=== PATIENT | male | born 1955 | race African-American/Black ===

== ENCOUNTER → 2017-12-03 | Outpatient (CLI) | payer BC ==
--- NOTE | 2017-12-04 12:13 | RADIOLOGY REPORT (SQ) ---
EXAM DESCRIPTION: CT CHEST WITHOUT COMPLETED DATE/TIME: 12/04/2017 11:21 am LUNGRADS: Not applicable REASON FOR STUDY: LUNG CANCER SCREENING,Chronic obstructive pulmonary disease, unspecified J44.9 CH RONIC OBSTRUCTIVE PULMONARY DISEASE, UNSPECIFIED COPD, shortness of breath COMPARISON: None. TECHNIQUE: CT scan performed of the chest without intravenous contrast. Images reviewed with lung, soft tissue and bone windows. Reconstructed coronal and sagittal MPR images reviewed. All images st ored on PACS. All CT scanners at this facility use dose modulation, iterative reconstruction, and/or weight based d osing when appropriate to reduce radiation dose to as low as reasonably achievable (ALARA). [facility]: Dose Right [facility]: CareDose [facility]: Dose Right [facility]: Teradose 4D [facility]: Telespree RADIATION DOSE: CT Rad equipment meets quality standard of care and radiation dose reduction techniq ues were employed. CTDIvol: 2.1 mGy. DLP: 93 mGy-cm. mGy. LIMITATIONS: No technical limitations. FINDINGS: LUNG NODULES: There is minimal thickening along the right and left major fissures, benign . This is most evident along the inferior aspect of the left major fissure. No worrisome primary lung nodules. Tiny calcified nodule periphery right upper lobe axial image 135/6 08. REMAINING LUNGS AND PLEURA: No pleural effusions or calcifications. No pneumothorax. No scarrin g or interstitial changes. HILAR AND MEDIASTINAL STRUCTURES: No identified masses. No abnormal nodes. HEART AND VASCULAR STRUCTURES: No aortic aneurysm. No pericardial effusion. No cardiac devices. CORONARY ARTERY CALCIFICATIONS: No significant calcifications. UPPER ABDOMEN, THYROID, BONES, OTHER SOFT TISSUES: No significant findings. IMPRESSION: NO SIGNIFICANT FINDING ON NON-CONTRASTED CHEST CT. TECHNICAL DOCUMENTATION: JOB ID: [id number] Quality ID # [id number]: Final reports with documentation of one or more dose reduction techniques (e.g., Au tomated exposure control, adjustment of the mA and/or kV according to patient size, use of iterative reconstruction technique) 2010 [email or web address]- All Rights Reserved Reading location - IP/workstation name: [email or web address]
== END ==
LOC: RAD 16:42
PROVIDERS: ATTEND Internal Medicine
DX: Z12.2 Encounter for screening for malignant neoplasm of respiratory organs (principal); J44.9 Chronic obstructive pulmonary disease, unspecified; R06.02 Shortness of breath; R05 Cough
CPT/HCPCS: 71250; G0297

== ENCOUNTER → 2018-09-26 | Outpatient (CLI) | payer BC ==
--- NOTE | 2018-09-26 08:39 | RADIOLOGY REPORT (SQ) ---
EXAM DESCRIPTION: CTA CHEST COMPLETED DATE/TIME: 09/26/2018 8:21 am REASON FOR STUDY: SHORTNESS OF BREATH R06.02 SHORTNESS OF BREATH COMPARISON: CT lung cancer screening 12/03/2017 TECHNIQUE: CT scan of the chest performed using helical scanning technique with dynamic intravenous contrast injection. Images reviewed with lung, soft tissue and bone windows. Reconstructed coronal and sagittal MPR images reviewed. Additional 3 dimensional post-processing performed to develop Maximal Intensity Projection images (NC P). All images stored on PACS. All CT scanners at this facility use dose modulation, iterative reconstruction, and/or weight based d osing when appropriate to reduce radiation dose to as low as reasonably achievable (ALARA). [facility]: Dose Right [facility]: CareDose [facility]: Dose Right [facility]: Teradose 4D [facility]: Grupanya CONTRAST TYPE AND DOSE: contrast/concentration: Isovue 350.00 mg/ml; Total Contrast Delivered: 78.0 ml; Total Saline Delivered: 110.0 ml Contrast bolus optimized for the pulmonary arteries. Not diagnostic for the aorta. RENAL FUNCTION: Creatinine 0.9 RADIATION DOSE: CT Rad equipment meets quality standard of care and radiation dose reduction techniq ues were employed. CTDIvol: 11.3 - 14.8 mGy. DLP: 603 mGy-cm. . LIMITATIONS: None. FINDINGS: LUNGS AND PLEURA: No masses, infiltrates, or pneumothorax. No pleural effusions or pleura l calcifications. AORTA AND GREAT VESSELS: No aneurysm. Contrast bolus not optimized for the aorta. HEART: No pericardial effusion. No significant coronary artery calcifications. PULMONARY ARTERIES: No emboli visualized in the main pulmonary arteries or the segmental branches. HILAR AND MEDIASTINAL STRUCTURES: No identified masses or abnormal nodes. HARDWARE: None in the chest. UPPER ABDOMEN: No significant findings. Limited exam. THYROID AND OTHER SOFT TISSUES: No masses. No adenopathy. BONES: No acute or significant finding. 3D MIPS: Confirm above findings. OTHER: No other significant finding. IMPRESSION: NORMAL CTA OF THE CHEST. NO PULMONARY EMBOLI. COMMENT: Quality ID # [id number]: Final reports with documentation of one or more dose reduction techniques (e.g., Automated exposure control, adjustment of the mA and/or kV according to patient size, use of iterative reconstruction technique) TECHNICAL DOCUMENTATION: JOB ID: [id number] [employer]- All Rights Reserved Reading location - IP/workstation name: [email or web address]
== END ==
LOC: RAD 07:45
PROVIDERS: ATTEND Internal Medicine
DX: R06.02 Shortness of breath (principal)
CPT/HCPCS: 71275; 82565

== ENCOUNTER → 2018-10-01 | Outpatient (CLI) | payer BC ==
[~2018-10-01] MED LIST: REGADENOSON INJ 0.4 MG/5 ML DISP.SYRIN IV ONE
--- NOTE | 2018-10-03 07:12 | RADIOLOGY REPORT ---
STRESS TEST REPORT PATIENT NAME: JOHANNY BARNES ROOM#: DATE OF SERVICE: 10/01/2018 AGE: 62Y ORDER#: [id number] REFERRING MD: GUILLE GONZALEZ M.D. PROCEDURE PERFORMED: Rest/stress single isotope Cardiolite SPECT imaging with IV Lexiscan stress and gated SPECT imaging. INDICATION: Assessment of chest pain and shortness of breath. CLINICAL HISTORY: This 62-year-old male patient with known coronary artery disease who has cardiac risk factors of hypertension and use of tobacco. Current symptomatology includes lung hurts walking 50 yards, H and P says he has chest pains with movement. REPORT The patient received IV Lexiscan of 0.4 mg infused over 10 seconds. The resting heart rate was 82 BPM and increased to 126 BPM at end infusion. The resting blood pressure was 124/76, then increased to 140/83, subsequently went down to 116/78 at end infusion. The patient had symptoms of mild dizziness and shortness of breath, some nausea, but no chest pains. The resting 12-lead EKG showed NSR, 82 BPM, mild lateral ST-T changes, nonspecific. At end infusion, sinus tachycardia 126 BPM with PACs, no increased ST-T changes were seen. Myocardial perfusion imaging was performed at rest 60 minutes following the injection of 15.25 mCi of Cardiolite. Ten seconds after the IV Lexiscan injection, 43.6 mCi of Cardiolite was injected and flushed. Gated post-stress tomographic imaging was performed 60 minutes after stress. SUMMARY OF FINDINGS/IMPRESSION: The overall quality of the study is good. The left ventricular cavity is noted to be enlarged with an end systolic volume of 90 mL, greater enlargement on stress than on rest images, there is visual transient ischemic dilatation in the left ventricle, although the computer only calculated TID ratio at 0.92. SPECT images showed: 1. A moderate severe reversible ischemia in the apex and apical anterior wall, there is partial reversal. 2. A large area of severe basal inferior wall reversible ischemia with only partial reversible ischemia. 3. A large fixed area of severe perfusion defect in the inferolateral wall. The gated SPECT imaging showed reduced motion and contraction in the apex, apical anterior wall, and no motion contraction in the basal inferior wall and the basal inferolateral wall. The left ventricular ejection fraction was calculated to be 39% and this is moderately reduced. IMPRESSION: Myocardial perfusion imaging is very abnormal. There are 2 areas of partially reversible ischemia in the apex and apical anterior wall and the basal inferior wall. There is a large fixed perfusion defect, which is severe in the inferolateral wall. Gated SPECT imaging showed no motion contraction in the basal two thirds of the inferior wall and basal inferolateral wall and a reduced motion/contraction in the apex and apical anterior wall. Overall left ventricular ejection fraction was moderately reduced to 39% and there is cardiomegaly. There is also visual evidence of transient ischemic dilatation in the left ventricle. No prior studies for comparison. Recommend patient undergo cardiac catheterization to rule out severe ischemic heart disease versus cardiomyopathy. INTERPRETING PHYSICIAN: JASE MILLER M.D. /: [id number] TT: [id number] ID: [id number] /: [id number] TD: [id number] JOB: [id number] cc:Héctor DENISE M.D. > MTDD
== END ==
LOC: RAD 06:47
PROVIDERS: ATTEND Internal Medicine
DX: I25.10 Atherosclerotic heart disease of native coronary artery without angina pectoris (principal); R06.02 Shortness of breath; I10 Essential (primary) hypertension; Z72.0 Tobacco use
CPT/HCPCS: 93017; 78452; A9500; J2785; Q9969